=== PATIENT | male | born 1975 | race African-American/Black ===

== ENCOUNTER 2016-12-02 22:47 | Emergency (ER) | payer OTHER ==
[~2016-12-02] VITALS: Ht 182.9 cm; Wt 103.0 kg
[2016-12-02 22:53] VITALS: TEMP 36.8; Ht 182.9 cm; Wt 103.0 kg
[2016-12-02] MEDS ORDERED: OPTIRAY 320 IV PRN (23:15)
--- NOTE | 2016-12-02 23:19 | EMERGENCY ROOM VISIT NOTE ---
History Report prepared by Phan: Aman Corea Under the Supervision of: Dr. Nazanin Sultana D.O. First contact with patient: 22:58 Chief Complaint: NECK INJURY Stated Complaint: HANGING ATTEMPT/NECK PAIN SCI [facility]QUES History of Present Illness The patient is a 41 year old male who presents to the Emergency Room for evaluation after a hanging attempt. Police states the patient was found on lying on his cell floor in the recovery position. They report the patient had a rope around his neck that he braided from sheets. Police notes the rope was tied to an air vent, but it was not taught. They state the patient was not short of breath, pale, or purple in appearance. Police reports the patient was in the cell by himself, and he has tried to do this before. They note the patient was responsive immediately, and they would not let him get up on his own. No seizure like activity noted. Police states the patient is a prisoner of their mental health wing. The patient denies rolling off the bed, tingling, pin pricks, tingling to his thighs, and feeling of becoming incontinent. He reports he has lower back pain, nonradiating, no paresthesias. The patient provides a limited history, withdraws, and refuses to answer questions. HPI limited secondary to the patient's poor cooperation. Source of History: patient, police History Limited By: poor cooperation Review of Systems ROS limited secondary to the patient's poor cooperation. Past Medical & Surgical Past medical history unobtainable secondary to the patient's poor cooperation. Family History Family history unobtainable secondary to the patient's poor cooperation. Social History Smoking Status: Unknown if Ever Smoked Housing Status: other (correction) Current/Historical Medications Scheduled Atorvastatin (Lipitor), 20 MG PO DAILY Benztropine Mesylate (Benztropine Mesylate), 2 MG PO HS Diphenhydramine Hcl (Sleep) (Diphenhydramine Hcl), 200 MG PO HS Hctz/Losartan (Hyzaar 12.5MG/50MG), 1 TAB PO QAM Meloxicam (Mobic), 15 MG PO HS Perphenazine (Trilafon), 2 MG PO HS Salicylic Acid (Compound W), 1 APPLN TOP HS Sertraline (Zoloft), 100 MG PO DAILY Allergies Coded Allergies: No Known Allergies (Unverified , 12/02/16) Physical Exam Vital Signs Date Time Temp Pulse Resp B/P (MAP) Pulse Ox O2 Delivery O2 Flow Rate FiO2 12/03/16 00:56 64 18 140/98 96 12/03/16 00:08 63 18 145/90 96 Room Air 12/02/16 22:53 36.8 60 18 132/98 94 Room Air Physical Exam GENERAL: alert, well appearing, well nourished, no distress, non-toxic HEAD: normal cephalic, atraumatic EYE EXAM: normal conjunctiva, PERRL and EOM's grossly intact OROPHARYNX: no exudate, no erythema, lips, buccal mucosa, and tongue normal and mucous membranes are moist EARS: TMs clear b/l NECK: supple, no nuchal rigidity, no adenopathy, non-tender, no ligature fisher, no ecchymosis, no crepitus. CHEST: stable to compression anteriorly and posteriorly LUNGS: clear to auscultation. Normal chest wall mechanics HEART: no murmurs, S1 normal and S2 normal ABDOMEN: abdomen soft, non-tender, normo-active bowel sounds, no masses, no rebound or guarding. PELVIS: stable to compression anteriorly and posteriorly BACK: Back is symmetrical on inspection and there is no deformity, no upper midline tenderness, pain with palpation to the lower midline, no step-off. UPPER EXTREMITIES: full active and passive range of motion of all joints without tenderness to palpation LOWER EXTREMITIES: full active and passive range of motion of all joints without tenderness to palpation NEURO EXAM: Normal sensorium, cranial nerves II-XII grossly intact, normal speech, no gross weakness of arms, no gross weakness of legs. GCS: 15. Medical Decision & Procedures ER Provider Diagnostic Interpretation: CT:Per my review, radiologist interpretation. ADDENDUM - Added by Nitish Tobar MD on 12/03/2016 12:28 AM (-7:00) No vascular injury. Airways are patent. No significant soft tissue abnormality. CT NECK: No acute fracture or traumatic malalignment. Preseptal emphysema noted within the right upper lobe. Radiologist: Nitish Tobar MD Study ready at 0010 and initial results transmitted at 0028. CT L SPINE: No acute fracture or traumatic malalignment. Radiologist: Nitish Tobar MD Study ready at 0009 and initial results transmitted at 0022. CT C SPINE: Degenerative changes without evidence of acute fracture or hepatic malalignment. Paraseptal emphysema. Radiologist: Nitish Tobar MD Study ready at 0008 and initial results transmitted at 0020. Laboratory Results Test 12/02/16 23:35 Bedside Hemoglobin 15.6 g/dl (14.0-18.0) Bedside Hematocrit 46 % (42-52) Bedside Sodium 140 mEq/L (135-144) Bedside Potassium 3.3 mEq/L (3.3-5.0) Bedside Chloride 98 mEq/L (101-112) Bedside Total CO2 26 mEq/l (24-31) Anion Gap 21.0 mmol/L (16-25) Bedside Blood Urea Nitrogen 20 mg/dl (7-18) Bedside Creatinine 0.9 mg/dl (0.6-1.3) Bedside Glucose (other) 134 mg/dl (70-99) Bedside Ionized Calcium (Chilo) 1.18 mmol/l (1.12-1.32) Laboratory results per my review. ED Course 2302: The patient was evaluated in room C09. A complete history and physical exam was performed. 0031: Upon reevaluation, the patient is feeling better. I discussed the findings and the treatment plan with the patient. He verbalizes agreement and understanding. The patient was discharged back to correction. Medical Decision The patient is a 41 year old male who presents to the ED after a hanging attempt. Differential diagnosis includes: hyoid fracture, c-spine fracture, deep space infection, anaphylaxis. I do not suspect the patient was originally unconscious from his attempted hanging. There is no evidence of fracture injury, patent airway, was not hypoxic, no evidence of ligature fisher or crepitus. Patient with mild neck pain and mild low back pain, more likely chronic. I have a low suspicion for any additional occult traumatic injury. Vital signs stable throughout. Patient ready in mental health unit and on suicide watch. Did not feel patient warranted additional imaging or labs at this time. Medication Reconcilliation Current Medication List: was personally reviewed by me Blood Pressure Screening Patient's blood pressure: Elevated blood pressure Blood pressure disposition: Elevated BP felt to be situational Impression Primary Impression: Suicide attempt by hanging Additional Impressions: Neck pain Back pain Scribe Attestation The scribe's documentation has been prepared under my direction and personally reviewed by me in its entirety. I confirm that the note above accurately reflects all work, treatment, procedures, and medical decision making performed by me. Departure Information Dispostion Home / Self-Care Referrals [facility] DOCUMENTATION FORM, IMPORTANT VISIT INFORMATION, WORK / SCHOOL INSTRUCTIONS Patient Instructions My [facility] Additional Instructions Please take your regular medications as prescribed. Please monitor the back pain and neck pain for any changes. If you develop incontinence, weakness in an arm or leg, are unable to walk, develop numbness/tingling, fevers, notice a change in your bowel movements or bladder function, or you have any other new or concerning symptoms, please return to the emergency room. Please place the patient on suicide watch and continue his mental health treatment. Problem Qualifiers Primary Impression: Suicide attempt by hanging Encounter type: initial encounter Qualified Codes: T71.162A - Asphyxiation due to hanging, intentional self-harm, initial encounter Additional Impressions: Back pain Back pain location: low back pain Chronicity: acute Back pain laterality: bilateral Sciatica presence: without sciatica Qualified Codes: M54.5 - Low back pain
[2016-12-02] MEDS ORDERED: [UNRECOGNIZED DRUG - CODE] TOP (23:43)
[2016-12-02] MEDS ORDERED: DIPH50TA10 PO (23:43)
[2016-12-02] MEDS ORDERED: BENZ2TAB6 PO (23:43)
[2016-12-02] MEDS ORDERED: SERT-234 PO (23:43)
[2016-12-02] MEDS ORDERED: PERP1TAB10 PO (23:43)
[2016-12-02] MEDS ORDERED: HYZ/50125 PO (23:43)
[2016-12-02] MEDS ORDERED: MELO15TA10 PO (23:43)
[2016-12-02] MEDS ORDERED: ATOR-22 PO (23:43)
[2016-12-02 23:45] LABS: ISTAT CREATININE 0.9 mg/dl (0.6-1.3); ISTAT HEMOGLOBIN 15.6 g/dl (14.0-18.0); ISTAT IONIZED CALCIUM 1.18 mmol/l (1.12-1.32)
[2016-12-03 00:56] VITALS: BP 140/98; PULSE 64; O2SAT 96
--- NOTE | 2016-12-03 07:03 | DIAGNOSTIC IMAGING REPORT ---
CT OF THE LUMBAR SPINE WITHOUT CONTRAST CLINICAL HISTORY: Back pain. Found on floor. Attempted hanging. COMPARISON STUDY: No previous studies for comparison. TECHNIQUE: Axial images of the lumbar spine were obtained without IV contrast. Sagittal and coronal reconstructions were viewed. FINDINGS: For purposes of numbering on this exam, the L5-S1 disc space is assigned to axial image 314 of [id number]. Alignment of the lumbar spine is anatomic. Vertebral body heights are maintained. There is no acute lumbar spine fracture. Central canal and neural foramen are suboptimally assessed by CT. There is mild disc bulge at the L4-L5 level. Note is made of a probable right paracentral disc protrusion at L5-S1 that results in narrowing of the right lateral recess and right aspect of the central canal. There is mild multilevel facet arthrosis. There is suspected moderate bilateral neural foraminal stenosis at the L5-S1 level. Paravertebral soft tissues are unremarkable. Sacroiliac joints are intact. IMPRESSION: 1. No acute lumbar spine fracture or subluxation. 2. Right paracentral disc protrusion at L5-S1 that results in narrowing of the right lateral recess and right aspect of the central canal. Suboptimal evaluation of the central canal and neural foramen given CT technique. Electronically signed by: Jonatan Joyce M.D. 12/03/2016 7:01 AM Dictated Date/Time: 12/03/2016 6:56 AM
--- NOTE | 2016-12-03 07:29 | DIAGNOSTIC IMAGING REPORT ---
CERVICAL SPINE W/O CLINICAL HISTORY: 41 years-old Male presenting with attempted hanging. TECHNIQUE: Multidetector CT of the cervical spine was performed without the use of intravenous contrast. IV contrast: None. A dose lowering technique was used consistent with the principles of ALARA (as low as reasonably achievable). COMPARISON: None. CT DOSE (mGy.cm): The estimated cumulative dose is 2119.[address] soft tissue neck. FINDINGS: Garment Cutter topogram: Unremarkable. Straightening of normal cervical lordosis. Mild vertebral body height loss of C5 and C6. Remaining vertebral bodies demonstrate normal height and alignment. Intervertebral disc height loss also noted at C5-6. Small disc osteophyte complexes noted from C3-4 through C5-6. Mild posterior bony spurring at C5-6 without significant narrowing of the spinal canal. No significant neural foraminal narrowing. No acute fracture or subluxation. No prevertebral soft tissue swelling. Paraspinal musculature within normal limits. Cervical vessels grossly patent. Mild paraseptal emphysematous changes at the right apex. Please see separately dictated CT of the neck for further details. IMPRESSION: 1. No acute osseous injury of the cervical spine. 2. Mild multilevel degenerative change without significant neural foraminal or spinal canal narrowing. Electronically signed by: Jean Paul Costa M.D. 12/03/2016 7:27 AM Dictated Date/Time: 12/03/2016 7:00 AM
--- NOTE | 2016-12-03 07:49 | DIAGNOSTIC IMAGING REPORT ---
CT SCAN OF THE NECK WITH IV CONTRAST CLINICAL HISTORY: Attempted hanging. COMPARISON STUDY: No priors. TECHNIQUE: Following the IV administration of 93 cc of Optiray 320, CT scan of the soft tissues of the neck was performed from the skull base to the upper chest. Images are reviewed in the axial, sagittal, and coronal planes. IV contrast was administered without complication. A dose lowering technique was utilized adhering to the principles of ALARA. CT DOSE: 2119.56 mGy.cm FINDINGS: Pharynx: The nasopharynx, oropharynx, and laryngeal pharynx are normal in appearance. The pharyngeal airway is widely patent. There is no evidence of mass lesion. The vocal cords are symmetric. The parapharyngeal fat is well maintained. The prevertebral/retropharyngeal soft tissues are within normal limits. Soft tissues: There is mild soft tissue induration seen the ventral lower neck overlying the sternocleidomastoid musculature, likely related to recent trauma. No soft tissue hematoma is seen. Lymphadenopathy: No cervical lymphadenopathy is seen Thyroid: Normal in size and attenuation. Salivary glands: The parotid and submandibular glands are within normal limits. Brain parenchyma: The visualized brain parenchyma at the skull base is normal in appearance. Vascular structures: The carotid arteries and jugular veins are widely patent bilaterally. The vertebral arteries are patent. Skeletal structures: Imaged portions of the calvarium at the skull base are within normal limits. The cervical spine appears intact. Orbits: The bony orbits are intact. Orbital contents are normal in appearance. Sinuses and mastoids: Mild mucosal thickening is seen in the right maxillary antrum. The remaining paranasal sinuses are clear. The mastoid air cells are well pneumatized. Lung apices: Emphysematous change is present at the lung apices. The visualized upper lobe lung parenchyma is otherwise clear. IMPRESSION: 1. There is mild subcutaneous soft tissue induration in the ventral lower neck, likely related to recent injury. No soft tissue hematoma is seen. 2. The pharyngeal soft tissues are normal as imaged. 3. No vascular or osseous abnormality is seen. 4. Emphysema. Electronically signed by: Adriano Lopez M.D. 12/03/2016 7:47 AM Dictated Date/Time: 12/03/2016 7:35 AM
== END 2016-12-03 00:56 | disposition home or self-care (01) ==
LOC: EDBD 22:47 → C.EDC 22:50
DX: T71.162A Asphyxiation due to hanging, intentional self-harm, initial encounter (principal); M54.5 Low back pain; M54.2 Cervicalgia; X83.8XXA Intentional self-harm by other specified means, initial encounter